=== PATIENT | male | born 1990 | race Caucasian/White ===

== ENCOUNTER 2018-01-14 03:51 | Emergency (ER) | payer SELFPAY ==
--- NOTE | 2018-01-14 04:01 | ER Document Report ---
ED General - General Stated Complaint: UNRESPONSIVE Time Seen by Provider: 01/14/18 04:01 Notes: Patient is 27-year-old male was brought in by EMS because his friend found him outside sitting on the curb and somewhat. Patient denies any pain. He is awake alert now. Admits to drinking large amounts of alcohol earlier tonight. He denies any drug use. He denies any chronic medical problems. He denies any pain or injuries or falls. He has no other complaints at this time. He denies drinking alcohol daily. He says he just drinks occasionally. - Related Data Allergies/Adverse Reactions: No Known Allergies Allergy (Verified 01/14/18 04:11) Past Medical History - Social History Smoking Status: Unknown if Ever Smoked Frequency of alcohol use: Occasional Drug Abuse: None Family History: Reviewed & Not Pertinent Review of Systems - Review of Systems Notes: My Normal Review Basic REVIEW OF SYSTEMS: CONSTITUTIONAL : Denies fever, chills, or sweats. Denies recent illness. RESPIRATORY: Denies cough, cold, or chest congestion. Denies shortness of breath, difficulty breathing, or wheezing. GASTROINTESTINAL: Denies abdominal pain. Denies nausea, vomiting, or diarrhea. MUSCULOSKELETAL: Denies neck or back pain or joint pain or swelling. SKIN: Denies rash or skin lesions. NEUROLOGICAL: Was confused earlier when paramedics first arrived. Denies headache. Denies weakness or paralysis or loss of use of either side. Denies problems with gait or speech. Denies sensory or motor loss. ALL OTHER SYSTEMS REVIEWED AND NEGATIVE. Physical Exam - Vital signs Vitals: Resp BP Pulse Ox 20 122/79 100 01/14/18 03:57 01/14/18 03:57 01/14/18 03:57 - Notes Notes: Physical Exam - Notes Notes: General Appearance: Well nourished, alert, cooperative, no acute distress, no obvious discomfort. Patient's breath does smell of alcohol. Vitals: reviewed, See vital signs table. Head: no swelling or tenderness to the head Eyes: PERRL, EOMI, Conjuctiva clear Mouth: No decreasd moisture Lungs: No wheezing, No rales, No rhonci, No accessory muscle use, good air exchange bilaterally. Heart: Normal rate, Regular rythm, No murmur, no rub Neck: No tenderness palpation of the cervical spine. No step-offs or deformities. Abdomen: Normal BS, soft, No rigidity, No abdominal tenderness, No guarding, no rebound, no abdominal masses, no organomegaly Extremities: strength 5/5 in all extremities, good pulses in all extremities, no swelling or tenderness in the extremities, no edema. Skin: warm, dry, appropriate color, no rash Neuro: speech clear, oriented x 3, normal affect, responds appropriately to questions. Renal nerves II through XII are intact. Distal sensation intact. Patient was all extremities without difficulty. He acts appropriately without any concerns. Course - Re-evaluation Re-evalutation: 01/14/18 05:55 The nurse informed me that when I was in another patient's room that this patient's mother came by the room and got an argument with him in the left. She told the nurse that he drinks every day and that he is an alcoholic. I went back and spoke with the patient. Patient says he does not drink every day. He says he drinks about every other day. Says he does not want help with alcohol rehab. He says he can go several days without drinking without any difficulty. He says he never gets withdrawal symptoms. He currently does not want any help with rehab. We will continue with the patient rest and fully sober up. Patient currently here continues to be non-tachycardic without tremor and has no signs of withdrawal. We will continue with the patient sober and will reassess him when he is sober. - Vital Signs Vital signs: Temp Pulse Resp BP Pulse Ox 97.6 F 15 97/53 L 96 01/14/18 04:05 01/14/18 05:01 01/14/18 05:01 01/14/18 05:01 Discharge - Discharge Clinical Impression: Alcohol abuse Condition: Good Additional Instructions: Please cut back on your alcohol intake. Do not drink alcohol every day. Never binge drink and do not drink to get drunk. Your family has concerns that you use too much alcohol. Please consider following up with alcoholics [facility] or other alcohol support groups. Forms: Return to Work
[2018-01-14 08:37] VITALS: BP 100/70
== END 2018-01-14 08:37 | disposition home or self-care (01) ==
LOC: ER 03:51
DX: R41.82 Altered mental status, unspecified (principal); F10.10 Alcohol abuse, uncomplicated
CPT/HCPCS: 99284